=== PATIENT | male | born 1975 | race Caucasian/White ===

== ENCOUNTER → 2017-04-08 | Outpatient (CLI) | payer OTHER ==
[~2017-04-08] MED LIST: LANS15CA6 PO
[2017-04-08 10:04] LABS: CHOLESTEROL/HDL RATIO 5.8
[2017-04-10 19:09] LABS: POLIOTITER1 1:32 titer (>= 1:8); POLIOTITER3 1:32 titer (>= 1:8)
== END | disposition home or self-care (01) ==
LOC: C.LAB 08:41
PROVIDERS: ATTEND Physician Assistant
DX: Z00.00 Encounter for general adult medical examination without abnormal findings (principal)

== ENCOUNTER → 2018-04-14 | Outpatient (CLI) | payer OTHER ==
[2018-04-14 13:28] LABS: BLOOD UREA NITROGEN 18 mg/dl (7-18); CARBON DIOXIDE 29 mmol/L (21-32); CHOLESTEROL 265 mg/dl (0-200); CREATININE 1.41 mg/dl (0.60-1.40); GLUCOSE 95 mg/dl (70-99); LDL CHOLESTEROL CALCULATED 190 mg/dl; POTASSIUM 4.1 mmol/L (3.5-5.1); SODIUM 139 mmol/L (136-145)
== END | disposition home or self-care (01) ==
LOC: C.LABPBG 09:07
PROVIDERS: ATTEND Family Medicine
DX: E78.00 Pure hypercholesterolemia, unspecified (principal); R73.01 Impaired fasting glucose